=== PATIENT | female | born 2000 | race Hispanic/Latino ===

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

== ENCOUNTER 2021-04-08 06:43 | Emergency (ER) | payer SELFPAY ==
[~2021-04-08] VITALS: Ht 162.6 cm; Wt 80.7 kg
[2021-04-08] MEDS ORDERED: ONDANSETRON HCL INJ 2MG/ML 2ML 2 MG/ML VIAL IV STA (07:08)
[2021-04-08] MEDS ORDERED: KETOROLAC TROMETHAMINE 30 MG/ML VIAL IV STA (07:08)
[2021-04-08] MEDS ORDERED: FAMOTIDINE 20 MG/2 ML VIAL IV STA (07:08)
[2021-04-08] MEDS ORDERED: SODIUM CHLORIDE 0.9% 1000ML 1,000 ML IV SCH (07:15)
[2021-04-08] MEDS ORDERED: ONDANSETRON ODT4 MG PO (07:51)
[2021-04-08 08:14] VITALS: BP 120/67
== END 2021-04-08 08:15 | disposition home or self-care (01) ==
LOC: FSED 07:03
DX: R11.2 Nausea with vomiting, unspecified (principal)
CPT/HCPCS: 81003; 81025; 99283; J1885; J2405; J7030

== ENCOUNTER 2024-04-13 10:19 | Emergency (ER) | payer SELFPAY ==
[~2024-04-13] VITALS: Ht 162.6 cm; Wt 92.1 kg
[~2024-04-13 10:19] MED LIST: DIPHENHYDRAMINE25 MG PO; ESGIC 50-325-41 EACH PO; IBUPROFEN200 MG PO; ONDANSETRON ODT4 MG PO
[2024-04-13 10:25] VITALS: PULSE 86; RESP 20; TEMP 97.6
[2024-04-13] MEDS ORDERED: DIPHENHYDRAMINE25 M2 PO (10:39)
[2024-04-13] MEDS ORDERED: TYLENOL325 MG PO (10:39)
[2024-04-13 11:06] VITALS: BP 130/84; PULSE 80; RESP 20; TEMP 97.6; O2SAT 98
== END 2024-04-13 11:03 | disposition home or self-care (01) ==
LOC: FSED 10:22
DX: R05.9 Cough, unspecified (principal); J10.1 Influenza due to other identified influenza virus with other respiratory manifestations; R11.2 Nausea with vomiting, unspecified; R51.9 Headache, unspecified
CPT/HCPCS: 87400; 99284

== ENCOUNTER 2024-08-18 20:23 | Emergency (ER) | payer OTHER ==
[~2024-08-18] VITALS: Ht 162.6 cm; Wt 83.0 kg
[~2024-08-18 20:23] MED LIST changes: +DIPHENHYDRAMINE25 M2 PO; +TYLENOL325 MG PO
[2024-08-18] MEDS ORDERED: ONDANSETRON ODT4 MG PO (21:34)
[2024-08-18] MEDS ORDERED: BUTALB-ACETAMI1 EACH PO (21:34)
[2024-08-18] MEDS: DIPHENHYDRAMINE HCL INJ 50 MG/ML VIAL IV ONE (22:12)
[2024-08-18] MEDS: METOCLOPRAMIDE HCL 10 MG/2ML VIAL IV ONE (22:13)
[2024-08-18] MEDS: KETOROLAC TROMETHAMINE 30 MG/ML VIAL IV ONE (22:13)
[2024-08-18] MEDS: SODIUM CHLORIDE 0.9% 1000ML 1,000 ML IV STA (22:13)
[2024-08-18] MEDS: FAMOTIDINE 20 MG/2 ML VIAL IV ONE (22:13)
[2024-08-18 22:24] VITALS: PULSE 83; RESP 18; TEMP 97.9
[2024-08-18 22:39] VITALS: BP 127/74; PULSE 83; RESP 18; TEMP 97.9; O2SAT 99
== END 2024-08-18 22:39 | disposition home or self-care (01) ==
LOC: FSED 20:28
DX: R51.9 Headache, unspecified (principal); R11.2 Nausea with vomiting, unspecified
CPT/HCPCS: 70450; 80053; 81003; 81025; 85025; 96374; 96375; 99283; J1200; J1885; J2765; J7030; J1308